=== PATIENT | male | born 1960 | race Caucasian/White ===

== ENCOUNTER 2016-11-05 17:40 | Emergency (ER) | payer OTHER ==
[~2016-11-05] VITALS: Wt 79.4 kg
[~2016-11-05 17:40] MED LIST: ALBUTEROL0.09 MG/A2 IH; ALBUTEROL2.5 MG/0.5 INH; HEART MED; PREDNISONE10 MG PO; VIBRAMYCIN100 MG PO; VICODIN 5/500 505 MG PO; XANAX0.25 MG PO
[2016-11-05 18:11] LABS: BASO # 0.1 10*3/uL (0.0-0.1); BASO % 0.4 % (0.0-1.0); EOS # 0.4 10*3/uL (0.0-0.4); HEMATOCRIT 37.6 % (42.0-52.0); HEMOGLOBIN 12.4 g/dl (14.0-18.0); LYMPH # 2.9 10*3/uL (1.3-4.4); LYMPH % 25.4 % (27.0-41.0); MEAN CELL VOLUME 84.1 fl (80.0-94.0); MEAN CORPUSCULAR HGB 27.7 pg (27.0-31.0); MEAN PLATELET VOLUME 9.5 fl (9.6-12.3); MONO # 1.2 10*3/uL (0.1-1.0); MONO % 10.2 % (3.0-9.0); NEUT % 60.7 % (47.0-73.0); PLATELET COUNT AUTOMATED 387 10*3/uL (130-400); RED BLOOD COUNT 4.47 10*6/uL (4.50-5.90); RED CELL DISTRI WIDTH 14.5 % (0-14.5); WHITE BLOOD COUNT 11.6 10*3/uL (4.8-10.8)
[2016-11-05 18:16] LABS: BILIRUBIN NEGATIVE (NEGATIVE); BLOOD NEGATIVE (NEGATIVE); CLARITY CLEAR (CLEAR); COLOR YELLOW (YELLOW); GLUCOSE NEGATIVE (NEGATIVE); KETONE NEGATIVE (NEGATIVE); LEUKO ESTERASE NEGATIVE (NEGATIVE); NITRITE NEGATIVE (NEGATIVE); PROTEIN NEGATIVE (NEGATIVE); SPECIFIC GRAVITY <= 1.005 (1.005-1.030); UROBILINOGEN 0.2 E.U./dl (0.2-1.0)
[2016-11-05 18:22] LABS: BACTERIA TRACE; EPITHELIAL CELLS 0-2; URIC ACID CRYSTALS P; URINE REFLEX COMMENT NO (NO); WBC 0-2 wbc/hpf (0-5)
[2016-11-05 18:27] LABS: ALBUMIN 3.6 gm/dl (3.1-4.5); ALKALINE PHOSPHATASE 68 U/L (45-117); BILIRUBIN, TOTAL 0.2 mg/dl (0.2-1.0); BUN 11 mg/dl (7-24); CARBON DIOXIDE 27 mmol/L (21-32); CHLORIDE 106 mmol/L (98-107); EST GLOM FILT AFRICAN AMERICAN > 60 ml/min; GLUCOSE 81 mg/dL (65-99); POTASSIUM 3.2 mmol/L (3.5-5.1); SGOT/AST 20 IU/L (3-35); SGPT/ALT 21 U/L (12-78); SODIUM 143 mmol/L (136-145); TOTAL PROTEIN 7.4 gm/dL (6.4-8.2)
[2016-11-05 19:06] VITALS: BP 143/97
== END 2016-11-05 21:08 | disposition short-term general hospital (02) ==
LOC: ED 17:40
PROVIDERS: Nurse Practitioner Family
DX: S22.41XA Multiple fractures of ribs, right side, initial encounter for closed fracture (principal); S27.321A Contusion of lung, unilateral, initial encounter; E87.6 Hypokalemia; R03.0 Elevated blood-pressure reading, without diagnosis of hypertension; V89.2XXA Person injured in unspecified motor-vehicle accident, traffic, initial encounter; Y93.89 Activity, other specified; Y92.89 Other specified places as the place of occurrence of the external cause; Y99.8 Other external cause status

== ENCOUNTER 2016-12-07 16:33 | Inpatient (IN) | payer OTHER ==
[~2016-12-07] VITALS: Ht 167.6 cm; Wt 74.0 kg
--- NOTE | ~2016-12-07 | CON ---
[place], [place] REPORT OF CONSULTATION NAME: [facility]YN SR [id number] UNIT #: [id number] ROOM: 402 DOCTOR: YOUNG WHITAKER MD BIRTHDATE: [birth year] DOS: 12/08/2016 GASTROENDOSCOPIC REPORT HISTORY OF PRESENT ILLNESS: A 56-year-old patient who has presented with chief complaint of dysphagia, epigastric distress, unable to swallow, sensation of foreign body in esophagus. The patient with aggressive nicotine dependency, 3 pack of cigarettes per day and in addition to chewing tobacco for years. The patient has been admitted to Dr. Anaya's service for suspected foreign body in the esophagus. At the time of admission, white blood cell was 13, platelet count was 300, lactic acid 0.9, INR was 1.0. Chest x-ray, no acute process. Comprehensive metabolic panel and GFR greater than 60. CT scan of the head and neck, no acute intracranial bleed and soft tissue of the neck, there appears to be 1.6 elliptical foreign body in the cervical esophagus at approximately T12 level. PAST MEDICAL HISTORY: Associated hypertension, hypercholesterolemia, COPD, chronic nicotine dependency of aggressive type with nicotine chew and smoking. ALLERGIES: To no known medication. FAMILY HISTORY: Noncontributory. PAST SURGICAL HISTORY: Umbilical hernia, tonsillectomy and Bravo cyst removal. SOCIAL HISTORY: Aggressive smoker of 3 packs per day and chewing tobacco as well and no alcohol. FAMILY HISTORY: Noncontributory. REVIEW OF SYSTEMS: In general, HEENT: Denies double vision, blurred vision. RESPIRATORY: Denies shortness of breath. CARDIOVASCULAR: Denies chest pain. DIGESTIVE SYSTEM: Some difficulty with swallowing. PHYSICAL EXAMINATION: VITAL SIGNS: Stable. HEENT: Head normocephalic, nontraumatic. Mouth and buccal mucosa benign. NECK: Supple, no thyromegaly. CHEST: Symmetric anatomy, equal expansion. Decreased air entry in general, COPD. HEART: Normal sinus rhythm. No gallop, no murmur. ABDOMEN: Soft. No hepato-organomegaly. Bowel sounds present. No pulsatile mass. EXTREMITIES: No cyanosis, no pedal edema. NEUROLOGIC: Alert and oriented to time, place and person. IMPRESSION: Dysphagia, ruling out upper esophageal foreign body versus upper esophageal carcinoma, aggressive nicotine dependency of chewing tobacco as well [place], [place] REPORT OF CONSULTATION NAME: TONE LYN SR UNIT #: [id number] ROOM: 402 DOCTOR: YOUNG WHITAKER MD BIRTHDATE: [birth year] as 3 packs of smoker per day, hypertension, history of hypercholesterolemia. LABORATORY DATA: Reviewed. Records reviewed. X-rays reviewed. Case discussed with Dr. Anaya. PLAN AND DISCUSSION: We are going to proceed with panendoscopic assessment. His old history has been recognized including hypertension as well as COPD and hypercholesterolemia. YOUNG WHITAKER MD CM:CONSTR:REPORT OF CONSULTATION 1119 12/09/16 0349 interface
--- NOTE | ~2016-12-07 | O ---
[employer], [place] OPERATIVE NOTE NAME: TONE LYN SR UNIT #: [id number] ROOM: 402 DOCTOR: YOUNG WHITAKER MD BIRTHDATE: [birth year] DOS: 12/08/2016 INDICATIONS: A 56-year-old patient who has presented with chief complaint of esophageal dysphagia, unable to swallow, apparently has presented as if he has esophageal foreign body. Dr. Bragg and I talked and the patient was admitted, observed, hydrated. PROCEDURE: Today's procedure part of investigation is panendoscopy plus biopsy plus photographic series. PREMEDICATIONS: Versed and Diprivan. SCOPE: Olympus forward viewing gastroscope Q10 video. REPORT: After putting the patient in the left lateral position and after application of lubricant to the scope, the scope was introduced. Thereafter, under direct visualization, I advanced through the length of the esophagus without difficulty. Evidence of reflux esophagitis was noticed. Numerous diverticula at the distal esophagus were photographed. This is occupying the lower third of the esophagus. Small hiatal hernia noticed. Gastric pouch was entered. Multiple small antral ulcerations as well were identified. Duodenal bulb, second and third part within normal limits. Scope was withdrawn back to the gastric pouch. Margin of the ulcers was biopsied. GI reflection of the scope reveals cardia to be benign. Air was suctioned out. The patient tolerated the procedure well. IMPRESSION: Reflux esophagitis, numerous lower esophageal diverticula, small hiatal hernia, gastritis, multiple antral ulcers. PLAN AND DISCUSSION: We are going to concentrate on ulcer therapy with PPI. For further documentation of the diverticula, I am going to organize barium esophagram on him. We have investigated hypopharynx area. Vocal cords appeared to be quite edematous. There was no foreign body in the upper esophagus, and once the data is available, we are going to feed him and organizing discharge. The patient to remain on Protonix 40 mg daily. Elevation of the head of the bed 6 inches all time. Gaviscon as antacid of choice. Awaiting H. pylori results. [employer], [place] OPERATIVE NOTE NAME: TONE LYN SR UNIT #: [id number] ROOM: 402 DOCTOR: YOUNG WHITAKER MD BIRTHDATE: [birth year] YOUNG WHITAKER MD CM:EVE:OPERATIVE NOTE 1223 [id number] YOUNG WHITAKER MD 12/08/16 1634 interface
--- NOTE | ~2016-12-07 | WRIGHTHP ---
[place], [place] PATIENT HISTORY AND PHYSICAL EXAM NAME: TONE LYN SR UNIT #: [id number] ROOM: 402 DOCTOR: KATHY LEYVA MD BIRTHDATE: [birth year] DOS: 12/08/2016 TIME: 8:01 a.m. HISTORY OF PRESENT ILLNESS: The patient is very well known to us, 56 years old. The patient states that he could not even swallow his own saliva yesterday afternoon, so he decided to come into the Emergency Room. The only food he had eaten yesterday was pistachio nuts as well as trail mix. He is not exactly sure what kind of foreign body got into his throat, but he knew there was something was blocking and he kept on spitting his saliva outside, decided to come into the Emergency Room. He had a CT of the neck and showed a foreign body and he was admitted and he is awaiting endoscopy this morning for removal of the foreign body. This morning when I saw him, he stated that he is now able to swallow some saliva. He denies having any chest pains, palpitations, does not have any fever or chills, does not have any abdominal pain, nausea, any emesis. PAST MEDICAL HISTORY: Significant for: 1. Chronic back pain. 2. COPD with continued nicotine abuse. 3. Benign hypertension. MEDICATIONS: Norvasc, Vicodin, potassium, Xanax. SOCIAL HISTORY: Smoker of about half to 1 pack of cigarettes a day. Denies using any alcohol. PHYSICAL EXAMINATION: VITAL SIGNS: Graphic trend shows a pressure of 135/86, pulse of 83, respirations 18, temperature 98.3. LUNGS: Diminished breath sounds. No wheezes, rales or rhonchi heard this morning. HEART: Regular. ABDOMEN: Obese, soft. EXTREMITIES: Without any edema. LABORATORY DATA: CT of the soft tissue of the neck showed elliptical foreign body in the distal cervical esophagus. Emphysematous changes in the lungs. ASSESSMENT AND PLAN: 1. Foreign body of the cervical esophagus, for endoscopy today. 2. Benign hypertension, controlled. 3. Chronic obstructive pulmonary disease, panacinar. He does not have any exacerbations, advised again to quit smoking. [place], [place] PATIENT HISTORY AND PHYSICAL EXAM NAME: TONE LYN SR UNIT #: [id number] ROOM: [facility] DOCTOR: KATHY LEYVA MD BIRTHDATE: [birth year] KATHY LEYVA MD CM:HISPHYS:PATIENT HISTORY AND PHYSICAL EXAMINATION 2 4 KATHY LEYVA MD 12/08/16 0845 interface
[2016-12-07 16:53] VITALS: BP 150/100
[2016-12-07] MEDS ORDERED: PERCOCET 325 MG1 TA2 PO (16:57)
[2016-12-07] MEDS ORDERED: AMLODIPINE BESY10 MG PO (16:57)
[2016-12-07 18:18] LABS: BASO # 0.1 10*3/uL (0.0-0.1); BASO % 0.4 % (0.0-1.0); EOS # 0.1 10*3/uL (0.0-0.4); EOS % 0.8 % (1.0-4.0); HEMATOCRIT 44.6 % (42.0-52.0); HEMOGLOBIN 14.6 g/dl (14.0-18.0); IG # 0.1 10*3/uL (0.0-0.1); LYMPH # 3.1 10*3/uL (1.3-4.4); LYMPH % 24.1 % (27.0-41.0); MEAN CELL VOLUME 85.1 fl (80.0-94.0); MEAN CORPUSCULAR HGB 27.9 pg (27.0-31.0); MEAN CORPUSCULAR HGB CONC 32.7 g/dl (33.0-37.0); MEAN PLATELET VOLUME 10.1 fl (9.6-12.3); MONO # 1.2 10*3/uL (0.1-1.0); MONO % 9.4 % (3.0-9.0); NEUT # 8.5 10*3/uL (2.3-7.9); NEUT % 64.9 % (47.0-73.0); PLATELET COUNT AUTOMATED 396 10*3/uL (130-400); RED BLOOD COUNT 5.24 10*6/uL (4.50-5.90); RED CELL DISTRI WIDTH 14.9 % (0-14.5)
[2016-12-07 18:30] LABS: PROTHROMBIN TIME 10.6 SECONDS (9.0-12.4)
[2016-12-07 18:35] LABS: ALBUMIN 3.9 gm/dl (3.1-4.5); ALKALINE PHOSPHATASE 86 U/L (45-117); BILIRUBIN, TOTAL 0.3 mg/dl (0.2-1.0); BUN 16 mg/dl (7-24); CARBON DIOXIDE 28 mmol/L (21-32); CHLORIDE 109 mmol/L (98-107); CKMB 1.6 ng/ml (0.5-3.6); CPK 107 U/L (39-308); EST GLOM FILT AFRICAN AMERICAN > 60 ml/min; GLUCOSE 104 mg/dL (65-99); MAGNESIUM 1.9 mg/dL (1.5-2.1); POTASSIUM 3.9 mmol/L (3.5-5.1); SGOT/AST 22 IU/L (3-35); SGPT/ALT 26 U/L (12-78); SODIUM 142 mmol/L (136-145)
[2016-12-07 18:37] LABS: C-REACTIVE PROTEIN < 0.29 MG/DL (0-0.3); TROPONIN I < 0.015 ng/ml (<0.045)
[2016-12-07 20:58] VITALS: BP 142/85
[2016-12-07 21:25] VITALS: BP 132/85
[2016-12-07 21:30] VITALS: BP 132/85
[2016-12-07] MEDS ORDERED: VENTOLIN H0.09 MG/AC INH (21:53)
[2016-12-08] VITALS: BP 135/86
[2016-12-08 08:00] VITALS: BP 154/88
[2016-12-08 10:00] VITALS: BP 136/93
[2016-12-08 12:15] VITALS: BP 121/55
[2016-12-08 12:30] VITALS: BP 130/81
[2016-12-08 12:45] VITALS: BP 131/84
== END 2016-12-08 13:51 | disposition home or self-care (01) | DRG 392 ==
LOC: ED 16:33 → EDHOLD 19:58 → 4E 20:24
PROVIDERS: Emergency Medicine
PROC: 0DB68ZX Excision of Stomach, Via Natural or Artificial Opening Endoscopic, Diagnostic (ICD-10-PCS; principal; 2016-12-08)
DX: R13.10 Dysphagia, unspecified (principal); K25.9 Gastric ulcer, unspecified as acute or chronic, without hemorrhage or perforation; I10 Essential (primary) hypertension; G89.29 Other chronic pain; M54.9 Dorsalgia, unspecified; J44.9 Chronic obstructive pulmonary disease, unspecified; E78.1 Pure hyperglyceridemia; F17.200 Nicotine dependence, unspecified, uncomplicated; K21.0 Gastro-esophageal reflux disease with esophagitis; K29.70 Gastritis, unspecified, without bleeding; K22.5 Diverticulum of esophagus, acquired; K44.9 Diaphragmatic hernia without obstruction or gangrene